=== PATIENT | male | born 1965 | race Caucasian/White ===

== ENCOUNTER 2017-07-20 14:15 | Inpatient (IN) | payer BC ==
[~2017-07-20] VITALS: Ht 175.3 cm; Wt 81.0 kg
[2017-07-20 14:53] LABS: BASOPHILS % (AUTO) 0.3 % (0-1); EOSINOPHILS # (AUTO) 0.3 X10'3 (0-0.9); HEMATOCRIT 43.5 % (42.0-52.0); LYMPHOCYTES # (AUTO) 2.1 X10'3 (1.1-4.8); MEAN CORPUSCULAR HEMOGLOBIN 32.6 PG (27.0-31.0); MEAN CORPUSCULAR HGB CONC 34.4 % (33.0-36.5); MEAN CORPUSCULAR VOLUME 94.7 FL (78-98); MEAN PLATELET VOLUME 7.1 FL (7.4-10.4); MONOCYTES # (AUTO) 0.6 X10'3 (0-0.9); MONOCYTES % (AUTO) 8.4 % (2-12); NEUTROPHILS # (AUTO) 3.7 X10'3 (1.8-7.7); NEUTROPHILS % (AUTO) 55.3 % (42-75); PLATELET COUNT 263 X10'3 (140-440); RED CELL DISTRIBUTION WIDTH 12.8 % (11.5-14.5); WHITE BLOOD COUNT 6.7 X10'3 (4.5-11.0)
[2017-07-20 15:04] LABS: PARTIAL THROMBOPLASTIN TIME 25 SECONDS (22-32); PROTHROMBIN TIME 10.8 SECONDS (9.0-12.0)
[2017-07-20 15:11] LABS: ALANINE AMINOTRANSFERASE 22 U/L (12-78); ALBUMIN 3.9 G/DL (3.4-5.0); ALBUMIN/GLOBULIN RATIO 1.2 (1.1-1.5); ALKALINE PHOSPHATASE 65 IU/L (46-116); ANION GAP 11 (8-16); ASPARTATE AMINO TRANSFERASE 16 U/L (10-37); BILIRUBIN,TOTAL 0.4 MG/DL (0.1-1.0); BLOOD UREA NITROGEN 15 MG/DL (7-18); BUN/CREATININE RATIO 18.8 (5.4-32.0); CHLORIDE 105 MMOL/L (99-107); GLUCOSE 108 MG/DL (70-104); POTASSIUM 4.2 MMOL/L (3.5-5.1); SODIUM 140 MMOL/L (135-145); TOTAL CARBON DIOXIDE 23.8 MMOL/L (24-32); TOTAL PROTEIN 7.1 G/DL (6.4-8.2); eGFR > 90 ML/MIN
[2017-07-20] MEDS ORDERED: ASPI81TA52 PO (16:48)
[2017-07-20] MEDS ORDERED: CLOP75TA15 PO (16:49)
[2017-07-20] MEDS ORDERED: LISI-604 PO (16:51)
[2017-07-20] MEDS ORDERED: METO-395 PO (16:51)
[2017-07-20] MEDS ORDERED: ATOR40TA3 PO (16:51)
[2017-07-20] MEDS ORDERED: enoxaparin 80mg/0.8ml syringe SUBCUT STA (16:55)
[2017-07-20] MEDS ORDERED: normal saline 1000ml 1,000 ML IV SCH (16:57)
[2017-07-20] MEDS ORDERED: mag hydrox/Alum hydrox/simeth 30ml oral suspension PO PRN (17:00)
[2017-07-20] MEDS ORDERED: potassium Cl 40MEQ/NS 500ml 500 ML IV PRN ×2 (17:00)
[2017-07-20] MEDS ORDERED: bisacodyl 10mg suppository rectal RC PRN (17:00)
[2017-07-20] MEDS ORDERED: acetaminophen 325mg tablet PO PRN ×2 (17:00)
[2017-07-20] MEDS ORDERED: metoclopramide 5 mg/ml inj IV PRN (17:00)
[2017-07-20] MEDS ORDERED: magnesium hydroxide 30ml (MOM) UD suspension PO PRN (17:00)
[2017-07-20] MEDS ORDERED: magnesium 4gm in 100ml NS 100 ML IV PRN (17:00)
[2017-07-20] MEDS ORDERED: ondansetron/PF 4mg/2ml inj IV PRN (17:00)
[2017-07-20] MEDS ORDERED: potassium Cl 20 mEq SR tablet PO PRN ×2 (17:00)
[2017-07-20] MEDS ORDERED: magnesium Cl slow-release 64mg tablet PO PRN (17:00)
[2017-07-20] MEDS ORDERED: morphine 4 MG/ML inj SYRINge IV PRN ×2 (17:00)
[2017-07-20] MEDS ORDERED: magnesium 2GM in 50ml NS 50 ML IV PRN (17:00)
[2017-07-20] MEDS ORDERED: isosorbide mononitrate 30mg tab.SR.24H PO STA (17:04)
[2017-07-20] MEDS ORDERED: nitroGLYCERIN 0.4mg SUBLingual tab SL PRN (17:05)
[2017-07-20 19:40] VITALS: BP 143/79
[2017-07-20 22:00] VITALS: BP 112/73
[2017-07-21] VITALS (13 sets, daily range): BP systolic 100–129; BP diastolic 57–89
[2017-07-21 02:25] LABS: BASOPHILS % (AUTO) 0.4 % (0-1); EOSINOPHILS # (AUTO) 0.5 X10'3 (0-0.9); EOSINOPHILS % (AUTO) 5.9 % (0-6); HEMATOCRIT 41.5 % (42.0-52.0); HEMOGLOBIN 14.2 g/dl (14.0-17.9); LYMPHOCYTES % (AUTO) 37.8 % (21-51); MEAN CORPUSCULAR HEMOGLOBIN 32.8 PG (27.0-31.0); MEAN CORPUSCULAR HGB CONC 34.2 % (33.0-36.5); MEAN CORPUSCULAR VOLUME 96.1 FL (78-98); MEAN PLATELET VOLUME 7.2 FL (7.4-10.4); MONOCYTES # (AUTO) 0.7 X10'3 (0-0.9); MONOCYTES % (AUTO) 8.3 % (2-12); NEUTROPHILS # (AUTO) 3.8 X10'3 (1.8-7.7); NEUTROPHILS % (AUTO) 47.6 % (42-75); PLATELET COUNT 239 X10'3 (140-440); RED BLOOD COUNT 4.32 X10'6 (4.70-6.10); RED CELL DISTRIBUTION WIDTH 13.5 % (11.5-14.5)
[2017-07-21 02:46] LABS: ALBUMIN 3.5 G/DL (3.4-5.0); ANION GAP 8 (8-16); BLOOD UREA NITROGEN 13 MG/DL (7-18); BUN/CREATININE RATIO 16.7 (5.4-32.0); CALCIUM 8.7 MG/DL (8.5-10.1); CHLORIDE 106 MMOL/L (99-107); CHOL/HDL RATIO 2.8 (0.00-4.99); CHOLESTEROL 175 MG/DL (0-200); CREATININE 0.78 MG/DL (0.60-1.10); GLUCOSE 98 MG/DL (70-104); HDL CHOLESTEROL 63 MG/DL (35-60); LDL CHOLESTEROL 83 MG/DL (50-100); MAGNESIUM 2.1 MG/DL (1.5-2.4); PHOSPHORUS 4.5 MG/DL (2.3-4.5); POTASSIUM 3.9 MMOL/L (3.5-5.1); SODIUM 139 MMOL/L (135-145); TRIGLYCERIDES 100 MG/DL (20-135); eGFR > 90 ML/MIN
[2017-07-21] MEDS: atorvastatin 20mg tablet PO SCH (07:12)
[2017-07-21] MEDS: aspirin 81mg tablet.DR PO SCH (07:13)
[2017-07-21] MEDS: lisinopril 10 MG tablet PO SCH (07:13)
[2017-07-21] MEDS: isosorbide mononitrate 30mg tab.SR.24H PO SCH (07:13)
[2017-07-21] MEDS ORDERED: metoprolol succinate 25mg (24-HOUR) SR. Tablet PO SCH (08:00)
[2017-07-21] MEDS ORDERED: heparin, porcine 5000 units/ml vial SQ SCH (08:00)
[2017-07-21] MEDS ORDERED: non-formulary drug (Atorvastatin Calcium (Lipitor) 1 TABLET) PO SCH (08:00)
[2017-07-21] MEDS: K and/or MAG REPLACEMENT MC SCH (08:00)
[2017-07-21] MEDS: metoprolol succinate 25mg (24-HOUR) SR. Tablet PO SCH (08:00)
[2017-07-21] MEDS ORDERED: nitroGLYCERIN-Tridil 50MG/D5W 250 ML IV ONE (08:44)
[2017-07-21] MEDS ORDERED: heparin 1,000unit/ml 10ml vial 10 ML ONE (08:44)
[2017-07-21] MEDS ORDERED: iohexol 350 MG/ML 50ML vial IV ONE ×2 (08:44→12:25)
[2017-07-21] MEDS ORDERED: LIDOcaine 1% (10mg/ml) 2ml vial ONE (08:44)
[2017-07-21] MEDS ORDERED: midazolam 2 mg/2 ml injection ONE (08:44)
[2017-07-21] MEDS ORDERED: verapamil 2.5 mg/ml inj IV ONE (08:44)
[2017-07-21] MEDS ORDERED: iohexol 350MG/ML 100ml bottle IV ONE (08:44)
[2017-07-21] MEDS ORDERED: fentaNYL/PF 50MCG/1 ML 2ML syringe ONE ×2 (08:44→12:47)
[2017-07-21] MEDS ORDERED: nitroGLYCERIN 0.4mg SUBLingual tab SL ONE (12:45)
[2017-07-21] MEDS: clopidogrel 75mg tablet PO SCH (13:52)
[2017-07-21] MEDS ORDERED: HYDROcodone/acetaminophen 10/325mg tab PO PRN ×2 (15:30→15:40)
[2017-07-21] MEDS ORDERED: HYDROcodone/acetaminophen 5mg/325mg tablet PO PRN ×2 (15:30→15:40)
[2017-07-21] MEDS ORDERED: isosorbide mononitrate 30mg tab.SR.24H PO SCH (21:00)
[2017-07-22 02:00] VITALS: BP 105/62
[2017-07-22 05:37] LABS: BASOPHILS % (AUTO) 0.4 % (0-1); EOSINOPHILS # (AUTO) 0.4 X10'3 (0-0.9); EOSINOPHILS % (AUTO) 4.5 % (0-6); HEMATOCRIT 40.5 % (42.0-52.0); HEMOGLOBIN 13.7 g/dl (14.0-17.9); LYMPHOCYTES # (AUTO) 2.3 X10'3 (1.1-4.8); LYMPHOCYTES % (AUTO) 28.2 % (21-51); MEAN CORPUSCULAR HEMOGLOBIN 32.5 PG (27.0-31.0); MEAN CORPUSCULAR HGB CONC 33.7 % (33.0-36.5); MEAN CORPUSCULAR VOLUME 96.3 FL (78-98); MEAN PLATELET VOLUME 7.4 FL (7.4-10.4); MONOCYTES # (AUTO) 0.6 X10'3 (0-0.9); NEUTROPHILS # (AUTO) 4.7 X10'3 (1.8-7.7); NEUTROPHILS % (AUTO) 58.9 % (42-75); PLATELET COUNT 227 X10'3 (140-440); RED BLOOD COUNT 4.21 X10'6 (4.70-6.10); RED CELL DISTRIBUTION WIDTH 13.3 % (11.5-14.5)
[2017-07-22 05:49] LABS: ALBUMIN 3.2 G/DL (3.4-5.0); ANION GAP 8 (8-16); BLOOD UREA NITROGEN 11 MG/DL (7-18); BUN/CREATININE RATIO 12.2 (5.4-32.0); CALCIUM 8.6 MG/DL (8.5-10.1); CHLORIDE 106 MMOL/L (99-107); GLUCOSE 109 MG/DL (70-104); MAGNESIUM 2.1 MG/DL (1.5-2.4); PHOSPHORUS 3.9 MG/DL (2.3-4.5); POTASSIUM 4.4 MMOL/L (3.5-5.1); SODIUM 141 MMOL/L (135-145); TOTAL CARBON DIOXIDE 26.8 MMOL/L (24-32); eGFR 88 ML/MIN
[2017-07-22 06:00] VITALS: BP 92/62
[2017-07-22 07:30] VITALS: BP 116/70
[2017-07-22] MEDS: metoprolol succinate 25mg (24-HOUR) SR. Tablet PO SCH (07:55)
[2017-07-22] MEDS: lisinopril 10 MG tablet PO SCH (07:55)
[2017-07-22] MEDS: isosorbide mononitrate 30mg tab.SR.24H PO SCH (07:55)
[2017-07-22] MEDS: aspirin 81mg tablet.DR PO SCH (07:55)
[2017-07-22] MEDS: atorvastatin 20mg tablet PO SCH (07:55)
[2017-07-22] MEDS: clopidogrel 75mg tablet PO SCH (07:55)
[2017-07-22] MEDS: K and/or MAG REPLACEMENT MC SCH (08:00)
[2017-07-22] MEDS ORDERED: ISOS30TA6 PO (10:44)
[2017-07-22] MEDS ORDERED: NITR0.4T51 SL (10:44)
[2017-07-22 11:00] VITALS: BP 119/74
== END 2017-07-22 13:55 | disposition home or self-care (01) | DRG 287 ==
LOC: ER 14:16 → ED HOLD 16:57 → EDBEDREQ 18:26 → PCU 3S 19:33
PROVIDERS: ADMIT Internal Medicine; ATTEND Family Medicine
PROC: 4A023N7 Measurement of Cardiac Sampling and Pressure, Left Heart, Percutaneous Approach (ICD-10-PCS; principal; 2017-07-21)
PROC: B2111ZZ Fluoroscopy of Multiple Coronary Arteries using Low Osmolar Contrast (ICD-10-PCS; 2017-07-21)
PROC: B2151ZZ Fluoroscopy of Left Heart using Low Osmolar Contrast (ICD-10-PCS; 2017-07-21)
DX: T82.855A Stenosis of coronary artery stent, initial encounter (principal); I24.9 Acute ischemic heart disease, unspecified; I25.110 Atherosclerotic heart disease of native coronary artery with unstable angina pectoris; E78.5 Hyperlipidemia, unspecified; I10 Essential (primary) hypertension; Y83.1 Surgical operation with implant of artificial internal device as the cause of abnormal reaction of the patient, or of later complication, without mention of misadventure at the time of the procedure; I25.2 Old myocardial infarction; Z82.3 Family history of stroke; Z95.1 Presence of aortocoronary bypass graft; Y92.89 Other specified places as the place of occurrence of the external cause
CPT/HCPCS: 36415; 71045; 80048; 80053; 80061; 83735; 84100; 84484; 85025; 85610; 85730; 87070; 93005; 93306; 93458; 99152; 99153; A4620; C1769; J1644; J1650; J2250; J3010; J3490; J7030; Q9967

== ENCOUNTER 2020-04-06 19:02 | Emergency (ER) | payer SELFPAY ==
[~2020-04-06] VITALS: Ht 172.7 cm; Wt 84.6 kg
[~2020-04-06 19:02] MED LIST: ASPI81TA52 PO; ATOR40TA7 PO; CLOP75TA15 PO; ISOS30TA6 PO; LISI-604 PO; METO-395 PO; NITR0.4T51 SL
[2020-04-06 19:58] LABS: BASOPHILS % (AUTO) 0.2 % (0-1); EOSINOPHILS # (AUTO) 0.2 X10'3 (0-0.9); EOSINOPHILS % (AUTO) 2.7 % (0-6); HEMATOCRIT 44.9 % (42.0-52.0); LYMPHOCYTES # (AUTO) 1.5 X10'3 (1.1-4.8); LYMPHOCYTES % (AUTO) 21.1 % (21-51); MEAN CORPUSCULAR HEMOGLOBIN 32.2 PG (27.0-31.0); MEAN CORPUSCULAR HGB CONC 33.4 g/dL (33.0-36.5); MEAN CORPUSCULAR VOLUME 96.5 FL (78-98); MONOCYTES # (AUTO) 0.6 X10'3 (0-0.9); MONOCYTES % (AUTO) 8.8 % (2-12); NEUTROPHILS # (AUTO) 4.6 X10'3 (1.8-7.7); NEUTROPHILS % (AUTO) 67.2 % (42-75); PLATELET COUNT 257 X10'3 (140-440); RED BLOOD COUNT 4.66 X10'6 (4.70-6.10); RED CELL DISTRIBUTION WIDTH 13.3 % (11.5-14.5); WHITE BLOOD COUNT 6.9 X10'3 (4.5-11.0)
--- NOTE | 2020-04-06 20:09 | NUR ---
Pt admits he hasn't taken his nightly meds and is not real good at remembering to take them, takes the morning ones faithfully. Encourged him to take those nighttime meds, as BP increases while we sleep so they are very very important. He said he had no idea and will definately start that.
[2020-04-06 20:13] LABS: ALANINE AMINOTRANSFERASE 29 U/L (12-78); ALBUMIN 4.2 G/DL (3.4-5.0); ALBUMIN/GLOBULIN RATIO 1.2 (1.1-1.5); ALKALINE PHOSPHATASE 78 IU/L (46-116); ANION GAP 11 (8-16); ASPARTATE AMINO TRANSFERASE 20 U/L (10-37); BILIRUBIN,TOTAL 0.6 MG/DL (0.1-1.0); BLOOD UREA NITROGEN 17 MG/DL (7-18); BUN/CREATININE RATIO 18.3 (5.4-32.0); CHLORIDE 105 MMOL/L (99-107); CREATININE 0.93 MG/DL (0.60-1.10); GLUCOSE 96 MG/DL (70-104); POTASSIUM 3.8 MMOL/L (3.5-5.1); SODIUM 140 MMOL/L (135-145); TOTAL PROTEIN 7.6 G/DL (6.4-8.2); eGFR 84 ML/MIN
[2020-04-06 21:35] VITALS: BP 148/95
== END 2020-04-06 21:36 | disposition home or self-care (01) ==
LOC: ER 19:03
DX: R42 Dizziness and giddiness (principal); I25.10 Atherosclerotic heart disease of native coronary artery without angina pectoris; I10 Essential (primary) hypertension; I25.2 Old myocardial infarction; Z98.890 Other specified postprocedural states; Z79.82 Long term (current) use of aspirin; Z79.899 Other long term (current) drug therapy
CPT/HCPCS: 36415; 70450; 71045; 80053; 83880; 84484; 85025; 93005; 99285

== ENCOUNTER → 2020-10-02 | Outpatient (CLI) | payer BC ==
[~2020-10-02] MED LIST changes: -ISOS30TA6 PO; +ISOS30TA84 PO; -LISI-604 PO; +LISI-790 PO
== END | disposition home or self-care (01) ==
LOC: CARD DIAG 12:58
DX: I25.10 Atherosclerotic heart disease of native coronary artery without angina pectoris (principal)
CPT/HCPCS: 93306

== ENCOUNTER 2021-02-16 18:59 | Emergency (ER) | payer BC ==
[~2021-02-16] VITALS: Ht 170.2 cm; Wt 84.1 kg
[~2021-02-16 18:59] MED LIST changes: -LISI-790 PO; +LISI5TAB22 PO
[2021-02-16 19:33] LABS: BASOPHILS % (AUTO) 0.7 % (0-1); EOSINOPHILS # (AUTO) 0.5 X10'3 (0-0.9); EOSINOPHILS % (AUTO) 6.9 % (0-6); HEMATOCRIT 44.9 % (42.0-52.0); HEMOGLOBIN 15.4 g/dl (14.0-17.9); LYMPHOCYTES # (AUTO) 2.7 X10'3 (1.1-4.8); LYMPHOCYTES % (AUTO) 36.2 % (21-51); MEAN CORPUSCULAR HEMOGLOBIN 32.6 PG (27.0-31.0); MEAN CORPUSCULAR HGB CONC 34.3 g/dL (33.0-36.5); MEAN CORPUSCULAR VOLUME 95.2 FL (78-98); MONOCYTES # (AUTO) 0.6 X10'3 (0-0.9); MONOCYTES % (AUTO) 7.5 % (2-12); NEUTROPHILS # (AUTO) 3.6 X10'3 (1.8-7.7); NEUTROPHILS % (AUTO) 48.7 % (42-75); PLATELET COUNT 262 X10'3 (140-440); RED BLOOD COUNT 4.72 X10'6 (4.70-6.10); WHITE BLOOD COUNT 7.3 X10'3 (4.5-11.0)
[2021-02-16] MEDS ORDERED: ondansetron/PF 4mg/2ml inj IV ONE ×2 (19:40)
[2021-02-16] MEDS ORDERED: fentaNYL/PF 50MCG/1 ML 2ML syringe IV ONE (19:40)
[2021-02-16] MEDS ORDERED: heparin 10,000 units/1 ML INJ IV ONE (19:40)
[2021-02-16] MEDS ORDERED: etomidate 2mg/ml inj. IV ONE (19:40)
[2021-02-16] MEDS ORDERED: aspirin 81mg tab.chew PO ONE (19:40)
[2021-02-16 19:54] LABS: ALANINE AMINOTRANSFERASE 37 U/L (12-78); ALBUMIN/GLOBULIN RATIO 1.1 (1.1-1.5); ALKALINE PHOSPHATASE 83 IU/L (46-116); ANION GAP 16 (8-16); ASPARTATE AMINO TRANSFERASE 14 U/L (10-37); BILIRUBIN,TOTAL 0.3 MG/DL (0.1-1.0); BLOOD UREA NITROGEN 12 MG/DL (7-18); BUN/CREATININE RATIO 14.5 (5.4-32.0); CALCIUM 8.9 MG/DL (8.5-10.1); CHLORIDE 106 MMOL/L (99-107); CREATININE 0.83 MG/DL (0.60-1.10); GLUCOSE 107 MG/DL (70-104); POTASSIUM 3.6 MMOL/L (3.5-5.1); SODIUM 144 MMOL/L (135-145); TOTAL CARBON DIOXIDE 22.5 MMOL/L (24-32); TOTAL PROTEIN 7.5 G/DL (6.4-8.2); eGFR > 90 ML/MIN
[2021-02-16 19:55] LABS: D-DIMER 0.23 MG/L FEU (0-0.50); PARTIAL THROMBOPLASTIN TIME 26 SECONDS (22-32)
[2021-02-16] MEDS ORDERED: fentaNYL/PF 50MCG/1 ML 2ML syringe ONE (19:56)
[2021-02-16 20:06] LABS: MAGNESIUM 2.2 MG/DL (1.5-2.4)
--- NOTE | 2021-02-16 20:20 | NUR ---
first fentanyl vial broke when attempting to draw medication. Second vial of fentanyl over-ridden from [employer] and given as charted previously.
--- NOTE | 2021-02-16 20:48 | NUR ---
Patient fully recovered from moderate sedation.
[2021-02-16 21:33] VITALS: BP 140/84
== END 2021-02-16 21:35 | disposition home or self-care (01) ==
LOC: ER 18:59
DX: I48.91 Unspecified atrial fibrillation (principal); R42 Dizziness and giddiness; R07.89 Other chest pain; R00.2 Palpitations; R06.02 Shortness of breath; I24.9 Acute ischemic heart disease, unspecified; I25.10 Atherosclerotic heart disease of native coronary artery without angina pectoris; I10 Essential (primary) hypertension; I25.2 Old myocardial infarction; Z98.890 Other specified postprocedural states; Z79.82 Long term (current) use of aspirin; Z79.899 Other long term (current) drug therapy
CPT/HCPCS: 36415; 71045; 80053; 83735; 83880; 84443; 84484; 85025; 85379; 85610; 85730; 92960; 93005; 94799; 96374; 96375; 99285; J1644; J2405; J3010